=== PATIENT | female | born 1965 | race Caucasian/White ===

== ENCOUNTER → 2018-06-12 | Outpatient (CLI) | payer OTHER ==
[~2018-06-12] MED LIST: AUG875 PO; CEFU500T10 PO; ESTR1PAT TD; FLUO-202 PO; IBUP50TA PO; IBUP800T37 PO; KET10 PO; LEVO-85 PO; LOR5/325 PO; LORA-1456 PO; METH4TAB66 PO; OXYC-865 PO; PANT40TA65 PO; PRED-1 PO; TRAM-627 PO; no routine meds
--- NOTE | 2018-06-12 17:13 | RADIOLOGY IMAGING REPORT ---
FACILITY: [facility] PATIENT NAME: GABRIELLE JARRETT : [id number] MR: [id number] V: [id number] EXAM DATE: ORDERING PHYSICIAN: KAITLIN BARNEY TECHNOLOGIST: Erin Kimble PROCEDURE:BILATERAL DIGITAL SCREENING MAMMOGRAM WITH CAD ASSISTED INTERPRETATION & 3D TOMOSYNTHESIS COMPARISON:Prior mammograms 02/27/17, 09/29/15, 03/18/13, 03/01/12. INDICATIONS:SCREENING FINDINGS: Moderately heterogeneous fibroglandular tissue is seen throughout the breasts. The parenchymal pattern has remained stable allowing for difference in mammographic technique & patient positioning. There is no evidence of malignant appearing mass, malignant appearing calcifications or other secondary sign of malignancy in either breast. DIAGNOSTIC CATEGORY 1--NEGATIVE. RECOMMENDATIONS: ROUTINE MAMMOGRAM AND CLINICAL EVALUATION. IMPRESSION: BIRADS 1: Negative. No significant abnormality is seen. Dictated by: Madeline Gutiérrez M.D. on 06/12/2018 at 15:30 Transcribed by: TREY on 06/12/2018 at 15:36 Approved by: Madeline Gutiérrez M.D. on 06/12/2018 at 17:12 [facility]
== END ==
LOC: MAMO 01:48
PROVIDERS: ATTEND Nurse Practitioner Psychiatric/Mental Health
DX: Z12.31 Encounter for screening mammogram for malignant neoplasm of breast (principal)
CPT/HCPCS: 77063; 77067

== ENCOUNTER 2019-03-25 19:32 | Emergency (ER) | payer OTHER ==
--- NOTE | 2019-03-25 19:41 | ER Report ---
History and Physical Time Seen By MD: 19:37 Hx. of Stated Complaint: patient states that today she was diagnosed with a uti at her PC, states that she still is not getting better HPI/ROS CHIEF COMPLAINT: Flank pain HISTORY OF PRESENT ILLNESS: This is a 53-year-old female who presents to the emergency department for flank pain. Patient states that she developed right flank pain this past Sunday, saw her primary care provider today, diagnosed with a urinary tract infection, given Pyridium and Macrobid, patient states that the pain has intensified, continues to have flank pain bilaterally over the majority of the pain is on the right. Patient states she is unable to get comfortable, during my exam she is standing up at the bedside. She also states that she does have a history of kidney stones. She denies fevers or chills. Intermittent nausea no vomiting. No diarrhea. No chest pain or shortness of breath. No ra shes. REVIEW OF SYSTEMS: Constitutional: No fever, no chills. Eyes: No discharge. ENT: No sore throat. Cardiovascular: No chest pain, no palpitations. Respiratory: No cough, no shortness of breath. Gastrointestinal: As above. Genitourinary: As above. Musculoskeletal: As above. Skin: No rashes. Neurological: No headache. Allergies: Coded Allergies: adhesive (Verified Allergy, Unknown, RASH, 08/31/17) morphine (Verified Allergy, Unknown, GI DISTRESS, vomiting, 08/31/17) Home Meds Reported Medications Phenazopyridine Hcl (PHENAZOPYRIDINE HCL) 100 Mg Tablet, 100 MG PO TID, TAB 03/25/19 Nitrofurantoin Monohyd/M-Cryst (NITROFURANTOIN MONO-MCR 100 MG) 100 Mg Capsule, 100 MG PO BID, CAPSULE 03/25/19 Past Medical/Surgical History Patient has a past medical and surgical history of H. pylori, peptic ulcer, urinary tract infections, ankle fracture, wrist fracture, wears glasses, kidney stones, Hodgkin's lymphoma, radiation treatment, appendectomy, cholecystectomy, hysterectomy, tonsillectomy. Reviewed Nurses Notes: Yes Hx Smoking: No Smoking Status: Never Smoker Hx Substance Use Disorder: No Hx Alcohol Use: Yes Constitutional Vital Sign - Last 24 Hours 03/25/19 03/25/19 03/25/19 03/25/19 19:32 19:36 19:36 20:00 Temp 97.7 Pulse ??? 80 Resp 19 B/P (MAP) 149/96 149/96 (113) ???/??? (1665) Pulse Ox 96 O2 Delivery Room Air 03/25/19 03/25/19 03/25/19 03/25/19 20:02 20:16 20:30 20:40 Pulse ??? B/P (MAP) 147/87 (107) 168/123 (138) 136/66 (89) 03/25/19 03/25/19 03/25/19 03/25/19 20:59 21:00 21:02 21:30 Pulse 84 72 B/P (MAP) 128/105 (113) 126/65 (85) Pulse Ox 93 98 O2 Flow Rate 2.0 03/25/19 21:30 B/P (MAP) 126/65 (85) Intake and Output 03/25/19 03/25/19 03/26/19 15:01 23:01 07:01 Intake Total 1000 ml Balance 1000 ml Physical Exam General Appearance: The patient is alert, has no immediate need for airway protection and no signs of toxicity. Eyes: Pupils equal and round no pallor or injection. ENT, Mouth: Mucous membranes are moist. Respiratory: There are no retractions, lungs are clear to auscultation. Cardiovascular: Regular rate and rhythm. No murmurs, clicks or rubs. Gastrointestinal: Abdomen is soft and non tender, no masses, bowel sounds normal. Neurological: Alert and oriented 4. Moving all extremities. Following all commands. No focal neuro deficits. Skin: Warm and dry, no rashes. Musculoskeletal: Neck is supple non tender. Bilateral flank pain, right greater than left. Extremities are nontender, nonswollen and have full range of motion. DIFFERENTIAL DIAGNOSIS: After history and physical exam differential diagnosis was considered for back pain including but not limited to muscular pain, herniated disc, spine fracture, intra-abdominal causes and urinary tract infection. Medical Decision Making Data Points Result Diagram: 03/25/19201003/25/192010 Laboratory Hematology Test 03/25/19 20:11 03/25/19 20:41 Red Blood Count 5.33 M/uL (4.17-5.56) Mean Corpuscular Volume 89.4 fL (80.0-96.0) Mean Corpuscular Hemoglobin 30.5 pg (26.0-33.0) Mean Corpuscular Hemoglobin Concent 34.1 g/dL (32.0-36.0) Red Cell Distribution Width 14.0 % (11.5-14.5) Mean Platelet Volume 7.1 fL (7.2-11.1) Neutrophils (%) (Auto) 59.2 % (39.4-72.5) Lymphocytes (%) (Auto) 25.7 % (17.6-49.6) Monocytes (%) (Auto) 9.9 % (4.1-12.4) Eosinophils (%) (Auto) 4.1 % (0.4-6.7) Basophils (%) (Auto) 1.1 % (0.3-1.4) Nucleated RBC Relative Count (auto) 0.1 /100WBC Neutrophils # (Auto) 5.2 K/uL (2.0-7.4) Lymphocytes # (Auto) 2.3 K/uL (1.3-3.6) Monocytes # (Auto) 0.9 K/uL (0.3-1.0) Eosinophils # (Auto) 0.4 K/uL (0.0-0.5) Basophils # (Auto) 0.1 K/uL (0.0-0.1) Nucleated RBC Absolute Count (auto) 0.01 K/uL Sodium Level 138 mmol/L (137-145) Potassium Level 4.0 mmol/L (3.5-5.0) Chloride Level 106 mmol/L (98-107) Carbon Dioxide Level 23 mmol/L (22-31) Blood Urea Nitrogen 10 mg/dl (7-18) Creatinine 1.00 mg/dl (0.52-1.04) Glomerular Filtration Rate Calc 57.8 Random Glucose 98 mg/dl (75-110) Calcium Level 9.0 mg/dl (8.4-10.2) Total Bilirubin 1.5 mg/dl (0.2-1.3) Aspartate Amino Transf (AST/SGOT) 28 U/L (0-35) Alanine Aminotransferase (ALT/SGPT) 29 U/L (0-56) Alkaline Phosphatase 81 U/L (0-126) Total Protein 7.2 g/dl (6.3-8.2) Albumin 4.2 g/dl (3.5-5.0) Urine Color Yellow Urine Clarity Clear Urine pH 6.0 pH (4.8-9.5) Urine Specific [place] 1.003 Urine Protein Negative mg/dL (NEGATIVE) Urine Glucose (UA) Negative mg/dL (NEGATIVE) Urine Ketones Negative mg/dL (NEGATIVE) Urine Blood Negative (NEGATIVE) Urine Nitrite Negative (NEGATIVE) Urine Bilirubin Negative (NEGATIVE) Urine Urobilinogen Negative mg/dL (0.2-1.9) Urine Leukocyte Esterase Negative (NEGATIVE) Urine RBC <1 /HPF (0-2/HPF) Urine WBC 1 /HPF (0-5/HPF) Urine Squamous Epithelial Cells Many /LPF (</=FEW) Urine Bacteria Few /HPF (NONE-FEW) Urine Mucus None /HPF (NONE-FEW) Chemistry Test 03/25/19 20:11 03/25/19 20:41 White Blood Count 8.8 k/uL (4.5-11.0) Red Blood Count 5.33 M/uL (4.17-5.56) Hemoglobin 16.3 g/dL (12.0-16.0) Hematocrit 47.7 % (34.0-47.0) Mean Corpuscular Volume 89.4 fL (80.0-96.0) Mean Corpuscular Hemoglobin 30.5 pg (26.0-33.0) Mean Corpuscular Hemoglobin Concent 34.1 g/dL (32.0-36.0) Red Cell Distribution Width 14.0 % (11.5-14.5) Platelet Count 384 K/uL (150-450) Mean Platelet Volume 7.1 fL (7.2-11.1) Neutrophils (%) (Auto) 59.2 % (39.4-72.5) Lymphocytes (%) (Auto) 25.7 % (17.6-49.6) Monocytes (%) (Auto) 9.9 % (4.1-12.4) Eosinophils (%) (Auto) 4.1 % (0.4-6.7) Basophils (%) (Auto) 1.1 % (0.3-1.4) Nucleated RBC Relative Count (auto) 0.1 /100WBC Neutrophils # (Auto) 5.2 K/uL (2.0-7.4) Lymphocytes # (Auto) 2.3 K/uL (1.3-3.6) Monocytes # (Auto) 0.9 K/uL (0.3-1.0) Eosinophils # (Auto) 0.4 K/uL (0.0-0.5) Basophils # (Auto) 0.1 K/uL (0.0-0.1) Nucleated RBC Absolute Count (auto) 0.01 K/uL Glomerular Filtration Rate Calc 57.8 Calcium Level 9.0 mg/dl (8.4-10.2) Total Bilirubin 1.5 mg/dl (0.2-1.3) Aspartate Amino Transf (AST/SGOT) 28 U/L (0-35) Alanine Aminotransferase (ALT/SGPT) 29 U/L (0-56) Alkaline Phosphatase 81 U/L (0-126) Total Protein 7.2 g/dl (6.3-8.2) Albumin 4.2 g/dl (3.5-5.0) Urine Color Yellow Urine Clarity Clear Urine pH 6.0 pH (4.8-9.5) Urine Specific [place] 1.003 Urine Protein Negative mg/dL (NEGATIVE) Urine Glucose (UA) Negative mg/dL (NEGATIVE) Urine Ketones Negative mg/dL (NEGATIVE) Urine Blood Negative (NEGATIVE) Urine Nitrite Negative (NEGATIVE) Urine Bilirubin Negative (NEGATIVE) Urine Urobilinogen Negative mg/dL (0.2-1.9) Urine Leukocyte Esterase Negative (NEGATIVE) Urine RBC <1 /HPF (0-2/HPF) Urine WBC 1 /HPF (0-5/HPF) Urine Squamous Epithelial Cells Many /LPF (</=FEW) Urine Bacteria Few /HPF (NONE-FEW) Urine Mucus None /HPF (NONE-FEW) Urinalysis Test 03/25/19 20:41 Urine Color Yellow Urine Clarity Clear Urine pH 6.0 pH (4.8-9.5) Urine Specific [place] 1.003 Urine Protein Negative mg/dL (NEGATIVE) Urine Glucose (UA) Negative mg/dL (NEGATIVE) Urine Ketones Negative mg/dL (NEGATIVE) Urine Blood Negative (NEGATIVE) Urine Nitrite Negative (NEGATIVE) Urine Bilirubin Negative (NEGATIVE) Urine Urobilinogen Negative mg/dL (0.2-1.9) Urine Leukocyte Esterase Negative (NEGATIVE) Urine RBC <1 /HPF (0-2/HPF) Urine WBC 1 /HPF (0-5/HPF) Urine Squamous Epithelial Cells Many /LPF (</=FEW) Urine Bacteria Few /HPF (NONE-FEW) Urine Mucus None /HPF (NONE-FEW) EKG/Imaging Imaging PATIENT NAME: Eloisa Caruso : 1965 MR: [id number] V: [id number] EXAM DATE: [id number] ORDERING PHYSICIAN: DELORIS TAYLOR TECHNOLOGIST: Location: [facility] - [place] Patient: Eloisa Caruso : 1965 Visit/Account:[id number] Date of Sevice: 03/25/2019 CT ABDOMEN PELVIS W/O CON EXAMINATION: CT abdomen without IV contrast CT pelvis without contrast HISTORY: Flank pain. History of renal stones TECHNIQUE: CT scan of the abdomen and pelvis performed from the lung base through pubic symphysis followed by scan from lung base through pubic symphysis without contrast. Reconstructed sagittal and coronal scans obtained as well One of the following dose optimization techniques was utilized in the performance of this exam: Automated exposure control; adjustment of the mA and/or kV according to the patient's size; or use of an iterative reconstruction technique. Specific details can be referenced in the facility's radiology CT exam operational policy. COMPARISON STUDIES: 09/18/2007 FINDINGS: Please note that this exam was tailored for detection of urinary stones. Portions of the upper abdomen may not be included. Also, with intravenous contrast, sensitivity to detection of parenchymal disease is limited. Right kidney and ureter: There is a nonobstructing 2.5 mm stone in the right kidney. (Image 61 series 2) no additional renal calculi are seen. There is no renal obstructive change. Normal-appearing nondilated ureter down to the bladder. Left kidney and ureter: No left renal calculi. No renal obstructive uropathy change. Normal-appearing nondilated ureter down to the bladder. Bladder: Bladder is decompressed. No stones within the bladder to suggest recently passed stones. Liver/Biliary: Unremarkable noncontrast liver. Status post cholecystectomy. Pancreas: Negative Spleen: Negative Adrenal glands: Negative Kidneys/Retroperitoneum: No acute renal pathology. No focal renal mass is noted. Pelvic structures: Status post hysterectomy. Bowel/peritoneum/mesenteries: Status post appendectomy. No colonic mass lesion. No bowel inflammation. Vessels: Negative Musculoskeletal/body wall: No acute osseous pathology. Disc spaces well- maintained with no DJD of any significance. Mild disc space narrowing at the L2- 3 level. Lymph node assessment: Negative Lower chest: Negative IMPRESSION: 1. No evidence of renal obstructive uropathy change. 2. Nonobstructing 2.5 mm stone in the right kidney. 3. No acute intra-abdominal pathology noted. Report Dictated By: Amado Perez MD at 03/25/2019 8:54 PM Report E-Signed By: Amado Perez MD at 03/25/2019 9:03 PM WSN:[id number] ED Course/Re-evaluation Clinical Indication for ER IV: Hydration, IV Access ED Course The patient was admitted to room. A history and physical obtained. Differential diagnoses were considered. An IV was started. A CBC, CMP, UA were collected. Adelfo napier was given a 1 L normal saline bolus. 4 mg IV Zofran, 50 g IV fentanyl which did provide some relief. Patient was given an additional 0.5 mg IV Dilaudid which did provide additional relief. CBC unremarkable, chemistry unremarkable, negative UA. The patient had continued flank pain, CT of the a bdomen pelvis was negative for Renal obstructive uropathy, there is a nonobstructing 2.5 mm stone in the right kidney, no other acute intra-abdominal pathology identified. I did review the results with the patient and her at the bedside, I didn't find and that there is no indication of a urinary tract infection, no pyelonephritis or kidney stone in the ureter would be causing the pain. She states the urine exam was positive when she followed up with her primary care provider earlier in the day, as this could be a urologic concern I did have her follow up with Dr. Rodriguez, the urologist. Patient was also given 30 mg IV Toradol, I did offer pain medications for discharge however she declined at this time. I did send the patient home with a take-home pack for Toradol. Patient had no other questions or concerns at this time and was discharged home. I also discussed the possibilities of early onset gastroenteritis which could be causing some the patient's discomfort. Decision to Disposition Date: Mar 25, 2019 Decision to Disposition Time: 21:22 Depart Departure Latest Vital Signs Vital Signs Date Time Temp Pulse Resp B/P (MAP) Pulse Ox O2 Delivery O2 Flow Rate FiO2 03/25/19 21:30 126/65 (85) 03/25/19 21:30 72 98 03/25/19 20:59 2.0 03/25/19 19:36 97.7 19 Room Air Impression: Primary Impression: Flank pain, acute Condition: Improved Disposition: HOME OR SELF-CARE Referrals: AARON RODRIGUEZ MD 1 Day Patient Instructions: Flank Pain (ED) Additional Instructions: There is no stone in the ureter, there is however one stone in the kidney, typically these do not cause pain. As your symptoms seem to be uroligic in nature I do want you to follow up with urology as soon as possible. I would like you to contact Dr. Rodriguez, the urologist, tomorrow morning for a follow-up. Although your urine looked good tonight, please continue the antibiotics that were prescribed to you. You can continue taking the Pyridium. You can take 10mg Toradol every 8 hours as needed for pain, do not take ibuprofen in addition as they are in the same class. You can also take 500-1000mg of Tylenol every 8 hours for additional relief. Continue drinking plenty of water. Return to the emergency department for any other concerns or worsening symptoms. DELORIS TAYLOR SPECIAL EDUCATION DIRECTOR-BC Mar 25, 2019 19:41
[2019-03-25] MEDS ORDERED: NS(*) 0.9% 1000 ML BAG 1,000 ML IV ONE (19:46)
[2019-03-25] MEDS ORDERED: fentaNYL CITR 100 MCG/2 ML AMP IVP ONE (19:50)
[2019-03-25] MEDS ORDERED: ONDANSETRON 4 MG/2 ML VIAL IVP ONE (19:50)
[2019-03-25 20:21] LABS: PLATELET COUNT, AUTOMATED 384 K/uL (150-450)
[2019-03-25] MEDS ORDERED: PHEN100T27 PO (20:25)
[2019-03-25] MEDS ORDERED: NITR-57 PO (20:25)
[2019-03-25] MEDS ORDERED: HYDROMORPHONE HCL 1 MG/ML SYRINGE IVP ONE (20:45)
--- NOTE | 2019-03-25 21:09 | RADIOLOGY IMAGING REPORT ---
FACILITY: [facility] PATIENT NAME: Eloisa Caruso : 1965 MR: [id number] V: [id number] EXAM DATE: ORDERING PHYSICIAN: DELORIS TAYLOR TECHNOLOG[place]: [place] [facility] [place]oisa Car[place] : 1965 Visit/Account:[id number] Date of Sevice: 03/25/2019 CT ABDOMEN PELVIS W/O CON EXAMINATION: CT abdomen without IV contrast CT pelvis without contrast HISTORY: Flank pain. History of renal stones TECHNIQUE: CT scan of the abdomen and pelvis performed from the lung base through pubic symphysis fol lowed by scan from lung base through pubic symphysis without contrast. Reconstructed sagittal and cor onal scans obtained as well One of the following dose optimization techniques was utilized in the performance of this exam: Autom ated exposure control; adjustment of the mA and/or kV according to the patient's size; or use of an i terative reconstruction technique. Specific details can be referenced in the facility's radiology C T exam operational policy. COMPARISON STUDIES: 09/18/2007 FINDINGS: Please note that this exam was tailored for detection of urinary stones. Portions of the upper abdome n may not be included. Also, with intravenous contrast, sensitivity to detection of parenchymal disea se is limited. Right kidney and ureter: There is a nonobstructing 2.5 mm stone in the right kidney. (Image 61 series 2) no additional renal calculi are seen. There is no renal obstructive change. Normal-appearing nond ilated ureter down to the bladder. Left kidney and ureter: No left renal calculi. No renal obstructive uropathy change. Normal-appearing nondilated ureter down to the bladder. Bladder: Bladder is decompressed. No stones within the bladder to suggest recently passed stones. Liver/Biliary: Unremarkable noncontrast liver. Status post cholecystectomy. Pancreas: Negative Spleen: Negative Adrenal glands: Negative Kidneys/Retroperitoneum: No acute renal pathology. No focal renal mass is noted. Pelvic structures: Status post hysterectomy. Bowel/peritoneum/mesenteries: Status post appendectomy. No colonic mass lesion. No bowel inflammation . Vessels: Negative Musculoskeletal/body wall: No acute osseous pathology. Disc spaces well-maintained with no DJD of any significance. Mild disc space narrowing at the L2-3 level. Lymph node assessment: Negative Lower chest: Negative IMPRESSION: 1. No evidence of renal obstructive uropathy change. 2. Nonobstructing 2.5 mm stone in the right kidney. 3. No acute intra-abdominal pathology noted. Report Dictated By: Amado Perez MD at 03/25/2019 8:54 PM Report E-Signed By: Amado Perez MD at 03/25/2019 9:03 PM WSN:[id number]
[2019-03-25] MEDS ORDERED: KETOROLAC 30 MG/ML VIAL IVP ONE (21:25)
[2019-03-25 21:30] VITALS: BP 126/65
[2019-03-25] MEDS ORDERED: KETOROLAC TROM 10 MG TAB TH PO ONE (21:45)
== END 2019-03-25 22:00 | disposition home or self-care (01) ==
LOC: ER 19:50
DX: R10.9 Unspecified abdominal pain (principal); N20.0 Calculus of kidney
CPT/HCPCS: 74176; 81001; 85025; 96361; 96374; 96375; 99284; J1170; J1885; J2405; J3010; J7030; 82040; 82247; 82310; 82374; 82435; 82565; 82947; 84075; 84132; 84155; 84295; 84450; 84460; 84520